=== PATIENT | male | born 1995 | race Caucasian/White ===

== ENCOUNTER 2021-06-21 12:43 | Emergency (ER) | payer BC, OTHER ==
[~2021-06-21] VITALS: Ht 182.9 cm; Wt 77.1 kg
--- NOTE | 2021-06-21 13:20 | NUR ---
at bedside for assessment
--- NOTE | 2021-06-21 13:50 | NUR ---
blue and purple bruise noted to bottom aspect of right foot
--- NOTE | 2021-06-21 14:14 | NUR ---
right lower posterior fiber glass splint applied per MD orders
--- NOTE | 2021-06-21 14:36 | NUR ---
Patient discharged to home in stable condition. Patient instructed on proper crutch use, assisted to vehicle with all belongings. No signs of acute distress noted at this time. Written and verbal after care instructions given. Patient verbalizes understanding of instructions. Stressed follow up or return to ER for worsening s/s.
[2021-06-21 14:42] VITALS: BP 134/85
== END 2021-06-21 14:35 | disposition home or self-care (01) ==
LOC: ER 12:43
DX: S92.351A Displaced fracture of fifth metatarsal bone, right foot, initial encounter for closed fracture (principal); V00.131A Fall from skateboard, initial encounter; Y93.51 Activity, roller skating (inline) and skateboarding; Y92.89 Other specified places as the place of occurrence of the external cause
CPT/HCPCS: 73630; 73650; A4663